=== PATIENT | male | born 1960 | race Caucasian/White ===

== ENCOUNTER 2017-07-30 07:13 | Day surgery (SDC) | payer OTHER ==
[2017-07-30] MEDS ORDERED: PROPOFOL 20 ML ×2 (09:10→09:32)
[2017-07-30] MEDS ORDERED: FENTAnyl 50 MCG/ML VIAL (09:10)
[2017-07-30] MEDS ORDERED: MIDAZOLAM 1 MG/ML 2 ML INJ (09:10)
== END 2017-07-30 11:43 | disposition home or self-care (01) ==
LOC: GIL 07:13
DX: Z12.11 Encounter for screening for malignant neoplasm of colon (principal); K57.90 Diverticulosis of intestine, part unspecified, without perforation or abscess without bleeding; K64.8 Other hemorrhoids; I10 Essential (primary) hypertension
CPT/HCPCS: 45378